=== PATIENT | male | born 1970 | race Caucasian/White ===

== ENCOUNTER 2017-01-02 11:16 | Emergency (ER) | payer OTHER ==
[~2017-01-02] VITALS: Ht 185.4 cm; Wt 95.5 kg
[2017-01-02 11:18] VITALS: BP 133/74; PULSE 18; PULSE 87; RESP 15; TEMP 97.9; O2SAT 98
[2017-01-02] MEDS ORDERED: LIDOCAINE HCL 1% 50 ML VIAL INFIL ONE (12:45)
[2017-01-02] MEDS ORDERED: TETANUS/DIPHTHERIA TOXOID ADULT 0.5 ML VIAL IM ONE (12:45)
[2017-01-02] MEDS ORDERED: IBUPROFEN 800 MG TAB PO ONE (12:45)
[2017-01-02] MEDS ORDERED: CEPH-460 PO (12:47)
[2017-01-02] MEDS ORDERED: IBUP800T23 PO (12:47)
--- NOTE | 2017-01-02 12:47 | PD ---
HPI Chief Complaint: Laceration/Skin Injury Time Seen by Provider: 12:44 Travel History International Travel<30 days: No Contact w/Intl Traveler<30days: No Traveled to known affect area: No History of Present Illness HPI 46-year-old male presents to the emergency Department with complaint of a laceration to his left thigh from a pocket knife. He denies paresthesias, loss of sensation, decreased range of motion, decreased strength to the affected extremity. Denies fever, chills, nausea, vomiting. Is not up-to-date on his tetanus vaccination. Has not taken any medications to alleviate his symptoms. Has applied a bandage and pressure to control bleeding. No known allergies. No other modifying factors or associated signs and symptoms. PFSH Past Medical History Medical other: Yes (deyvi. inguinal hernia ) Tetanus Vaccination: < 5 Years Influenza Vaccination: No Past Surgical History Surgical History: No Previous Surgery Social History Alcohol Use: Yes Tobacco Use: Yes (11/07 ppd) Substance Use: No Allergies-Medications (Allergen,Severity, Reaction): Coded Allergies: No Known Allergies (Unverified , 01/02/17) Reported Meds & Prescriptions Reported Meds & Active Scripts Active Keflex (Cephalexin) 500 Mg Cap 500 Mg PO Q8H 7 Days Ibuprofen 800 Mg Tab 800 Mg PO Q6HR PRN Review of Systems Except as stated in HPI: all other systems reviewed are Neg Physical Exam Narrative GENERAL: Well-nourished, well-developed male patient, in no acute distress SKIN: Warm and dry. Left lateral thigh with approximately 2.5 cm laceration; without erythema, edema; with minimal amount of bright red drainage. Left lower extremity supple and non-tense with 2+ pedal pulse and sensory intact and without erythema or edema. HEAD: Atraumatic. Normocephalic. EYES: Pupils equal and round. No scleral icterus. No injection or drainage. ENT: Mucosa pink and moist. Airway patent. NECK: Trachea midline. CARDIOVASCULAR: Regular rate. RESPIRATORY: No accessory muscle use. GASTROINTESTINAL: Rounded. MUSCULOSKELETAL: No obvious deformities. No clubbing. No cyanosis. No edema. NEUROLOGICAL: Awake and alert. Oriented 3. No obvious cranial nerve deficits. Motor grossly within normal limits. Normal speech. PSYCHIATRIC: Appropriate mood and affect; insight and judgment normal. Data Data Last Documented VS Vital Signs Date Time Temp Pulse Resp B/P Pulse Ox O2 Delivery O2 Flow Rate FiO2 01/02/17 11:18 97.9 87 15 133/74 98 Orders Tetanus/Diphtheria Tox Adult (Tetanus/Di (01/02/17 12:45) Ibuprofen (Motrin) (01/02/17 12:45) Lidocaine 1% Inj (50 Ml) (Xylocaine 1% I (01/02/17 12:45) Wound Care (01/02/17 13:50) Crutches (01/02/17 13:50) MDM Medical Decision Making Medical Screen Exam Complete: Yes Emergency Medical Condition: Yes Medical Record Reviewed: Yes Differential Diagnosis Laceration, contusion, abrasion Narrative Course 46-year-old male with laceration to the left lateral thigh. Tetanus updated in the ER. See my procedure note for laceration repair. Ibuprofen administered in the ER. Keflex and ibuprofen prescribed for home. Patient to return to the emergency department or follow-up with primary care provider in 14 days for staple removal he verbalized understanding and agreement with treatment plan. Patient is medically cleared and stable for discharge. Discussed reasons to return to the emergency department. Instructed patient to follow up with primary care provider. Patient agrees with treatment plan. The patients vital signs are stable and the patient is stable for outpatient follow-up and treatment. Patient discharged home, stable and in no acute distress. Procedures Procedure Narrative LACERATION LOCATION: Left lateral thigh LENGTH: 2.5 cm NUMBER OF STITCHES/VERONICA: 5 veronica REPAIR: The area of the laceration was prepped with Betadine and sterilely draped. The laceration was infiltrated with 1% lidocaine. The wound was copiously irrigated and explored without evidence of foreign body, tendon injury or neurovascular injury. The wound was closed using veronica. This was a single layer repair. A sterile dressing was applied. The patient was advised to keep the dressing clean and dry. Patient tolerated the procedure well. Diagnosis Primary Impression: Laceration of left thigh Qualified Code: S71.112A - Laceration of left thigh, initial encounter Referrals: Primary Care Physician Patient Instructions: General Instructions, Laceration (ED), Staple Care (ED) Departure Forms: Tests/Procedures, Work Release Enter return to work date: Jan 03, 2017 Additional Instructions: Keep area clean and dry Ibuprofen or Tylenol as directed and as needed for pain and inflammation Ice pack to area as needed to decrease pain Return to the emergency department or follow-up with primary care provider in 14 days for staple removal Follow up with primary care provider Return to the emergency department immediately with worsening of symptoms Med/Other Pt SpecificInfo: Prescription(s) given Scripts Cephalexin (Keflex)500 Mg [id number] Mg PO Q8H 7 Days Ref 0 Prov:Saida Mendoza 01/02/17 Ibuprofen 800 Mg Klv129 Mg PO Q6HR PRN (PAIN) #30 TAB Ref 0 Prov:Saida Mendoza 01/02/17 Disposition: 01 DISCHARGE HOME Condition: Stable Saida Mendoza Jan 02, 2017 12:47
== END 2017-01-02 14:07 | disposition home or self-care (01) ==
LOC: NEPB 11:16
DX: S71.112A Laceration without foreign body, left thigh, initial encounter (principal); W26.0XXA Contact with knife, initial encounter; Z23 Encounter for immunization
CPT/HCPCS: 12001; 90471; 90714; 99282; E0113